=== PATIENT | female | born 1980 | race African-American/Black ===

== ENCOUNTER 2023-02-08 05:25 | Inpatient (IN) | payer OTHER ==
[2023-02-03 09:47] LABS: BASOPHILS % 0.3 % (0.0-1.0); EOSINOPHILS # (AUTO) 0.3 (0.0-0.4); EOSINOPHILS % 3.6 % (0.0-6.0); HEMATOCRIT 39.4 % (34.2-44.1); HEMOGLOBIN 12.6 g/dL (12.0-16.0); LYMPHOCYTES # (AUTO) 2.2 (1.0-3.2); LYMPHOCYTES % 24.4 % (18.0-39.1); MEAN CORPUSCULAR HEMOGLOBIN 26.5 pg (28-32); MEAN CORPUSCULAR VOLUME 82.8 fL (81-99); MONOCYTES # (AUTO) 0.5 (0.2-0.8); MONOCYTES % 5.3 % (4.4-11.3); NEUTROPHILS % 66.2 % (38.7-80.0); PLATELET COUNT 228 x10e3/uL (140-360); RED BLOOD COUNT 4.76 x10e6/uL (3.6-5.1); RED CELL DISTRIBUTION WIDTH 19.3 % (11.7-14.4); WHITE BLOOD COUNT 9.09 x10e3/uL (4.8-10.8)
[~2023-02-08] VITALS: Ht 175.3 cm; Wt 127.5 kg
[~2023-02-08 05:25] MED LIST: HYGROTON25 MG PO; NIFEDIPINE ER30 M1 PO
[2023-02-08] MEDS ORDERED: LACTATED RINGER'S 1,000 ML ONE (06:31)
[2023-02-08] MEDS ORDERED: BUPIVACAINE 0.25% 30ML SDV ONE ×3 (07:34→13:23)
[2023-02-08] MEDS ORDERED: HYDROCODONE/APAP 7.5MG-325MG 1 EA TAB PO PRN (07:45)
[2023-02-08 09:30] VITALS: BP 145/87; PULSE 78; RESP 14; TEMP 98.3; O2SAT 97
[2023-02-08] MEDS ORDERED: SCOPOLAMINE 1 MG PATCH TOP SCH (10:30)
[2023-02-08] MEDS ORDERED: FENTANYL CITRATE/PF 100MCG/2 ML INJ ONE (11:40)
[2023-02-08] MEDS ORDERED: MIDAZOLAM HCL 2 MG/2 ML VIAL ONE (11:40)
[2023-02-08 12:27] VITALS: BP 162/98; PULSE 87; RESP 20; TEMP 97.9; O2SAT 100
[2023-02-08] MEDS: ONDANSETRON HCL INJ 2MG/ML 2ML 2 MG/ML VIAL IV PRN ×2 (13:19→20:28)
[2023-02-08] MEDS: Morphine 2mg Syringe 2 MG/ML SYR IV PRN ×2 (13:20→20:28)
[2023-02-08] MEDS ORDERED: EPINEPHRINE HCL 1:1000 1ML 1 MG/ML AMP ONE (13:23)
[2023-02-08] MEDS: LACTATED RINGER'S 1,000 ML IV SCH (14:31)
[2023-02-08 16:20] VITALS: BP 173/91; PULSE 86; RESP 20; TEMP 97.9; O2SAT 98
[2023-02-08 18:49] VITALS: PULSE 89; RESP 20; O2SAT 100
[2023-02-08] MEDS ORDERED: ONDANSETRON HCL INJ 2MG/ML 2ML 2 MG/ML VIAL ONE (19:44)
[2023-02-08] MEDS ORDERED: PHENYLEPHRINE HCL 1% 10 MG/ML VIAL ONE (19:44)
[2023-02-08] MEDS ORDERED: ACETAMINOPHEN 1000 MG/100 ML IV ONE (19:44)
[2023-02-08] MEDS ORDERED: DEXAMETHASONE SOD PHOS INJ 4 MG/ML SDV ONE (19:44)
[2023-02-08] MEDS ORDERED: SUGAMMADEX SODIUM 200 MG/2 ML VIAL IV ONE (19:44)
[2023-02-08] MEDS ORDERED: LIDOCAINE HCL 2% LOCAL INJ 5 ML SDV VIAL INJ ONE (19:44)
[2023-02-08] MEDS ORDERED: DEXMEDETOMIDINE HCL 200 MCG/2 ML VIAL ONE (19:44)
[2023-02-08] MEDS ORDERED: PROPOFOL IV EMULSION 10 MG/ML 20 ML VIAL ONE (19:44)
[2023-02-08] MEDS ORDERED: ROCURONIUM BROMIDE 10 MG/ML 5ML VIAL IV ONE (19:44)
[2023-02-08] MEDS ORDERED: SEVOFLURANE INHAL SOLN 250 ML PEN BTL ONE (19:44)
[2023-02-08 20:00] VITALS: BP 179/95; PULSE 80; RESP 20; TEMP 99.1; O2SAT 100
[2023-02-08] MEDS: ENOXAPARIN SOD INJ 40 MG/0.4 ML SYR SC SCH (20:29)
[2023-02-08] MEDS ORDERED: ONDANSETRON HCL INJ 2MG/ML 2ML 2 MG/ML VIAL IV ONE (21:30)
[2023-02-08] MEDS: NIFEDIPINE CR 30 MG TAB PO SCH (22:35)
[2023-02-08] MEDS: CHLORTHALIDONE 25 MG TAB PO SCH (22:36)
[2023-02-09] VITALS (7 sets, daily range): BP systolic 146–181; BP diastolic 96–110; PULSE 70–97; RESP 18–21; TEMP 98.4–99.4; O2SAT 97–100
[2023-02-09] MEDS ORDERED: HYDRALAZINE HCL 20 MG/ML VIAL IV ONE (01:15)
[2023-02-09] MEDS: LACTATED RINGER'S 1,000 ML IV SCH ×2 (01:41→15:01)
[2023-02-09] MEDS ORDERED: HYDRALAZINE HCL 20 MG/ML VIAL IV PRN (05:15)
[2023-02-09 05:50] LABS: ALBUMIN 3.6 g/dL (3.5-5.0); ANION GAP 16.8 mmol/L (8-16); CREATININE, SERUM 0.89 mg/dL (0.57-1.11); MAGNESIUM 1.5 MG/DL (1.3-2.1); PHOSPHORUS 2.9 MG/DL (2.3-4.7); TOTAL PROTEIN 7.1 g/dL (6.5-8.1)
[2023-02-09 05:51] LABS: POTASSIUM 2.8 mmol/L (3.5-5.1)
[2023-02-09] MEDS ORDERED: POTASSIUM CHLORIDE 10MEQ EA PO ONE ×3 (06:50→10:30)
[2023-02-09 06:57] LABS: BASOPHILS % 0.1 % (0.0-1.0); HEMATOCRIT 39.3 % (34.2-44.1); HEMOGLOBIN 13.1 g/dL (12.0-16.0); LYMPHOCYTES # (AUTO) 1.9 (1.0-3.2); LYMPHOCYTES % 11.9 % (18.0-39.1); MEAN CORPUSCULAR HEMOGLOBIN 26.9 pg (28-32); MEAN CORPUSCULAR HGB CONC 33.3 g/dL (31-35); MEAN CORPUSCULAR VOLUME 80.7 fL (81-99); MONOCYTES # (AUTO) 1.2 (0.2-0.8); MONOCYTES % 7.4 % (4.4-11.3); NEUTROPHILS % 80.1 % (38.7-80.0); PLATELET COUNT 224 x10e3/uL (140-360); RED BLOOD COUNT 4.87 x10e6/uL (3.6-5.1); WHITE BLOOD COUNT 16.28 x10e3/uL (4.8-10.8)
[2023-02-09] MEDS: ONDANSETRON HCL INJ 2MG/ML 2ML 2 MG/ML VIAL IV PRN (07:26)
[2023-02-09] MEDS ORDERED: NIFEDIPINE CR 30 MG TAB PO SCH (09:00)
[2023-02-09] MEDS ORDERED: CHLORTHALIDONE 25 MG TAB PO SCH (09:00)
[2023-02-09] MEDS: CHLORTHALIDONE 25 MG TAB PO SCH (09:33)
[2023-02-09] MEDS: NIFEDIPINE CR 30 MG TAB PO SCH (09:35)
[2023-02-09] MEDS: ENOXAPARIN SOD INJ 40 MG/0.4 ML SYR SC SCH ×2 (09:35→17:48)
[2023-02-09] MEDS: POTASSIUM CHLORIDE 20MEQ/100ML 100 ML IV SCH ×2 (18:06→19:26)
[2023-02-09] MEDS ORDERED: SODIUM CHLORIDE 0.9% 250ML 250 ML ONE (18:14)
== END 2023-02-09 20:53 | disposition home or self-care (01) | DRG 620 ==
LOC: OR 05:25 → PACU V 07:44 → MED/SURG 09:55
PROVIDERS: ADMIT Internal Medicine; ATTEND Internal Medicine
PROC: 0DB64Z3 Excision of Stomach, Percutaneous Endoscopic Approach, Vertical (ICD-10-PCS; principal; 2023-02-08 07:38)
DX: E66.01 Morbid (severe) obesity due to excess calories (principal); K90.9 Intestinal malabsorption, unspecified; Z68.41 Body mass index [BMI] 40.0-44.9, adult; E87.6 Hypokalemia; I11.9 Hypertensive heart disease without heart failure; D64.9 Anemia, unspecified
CPT/HCPCS: 36415; 80053; 81025; 82948; 83735; 84100; 84132; 85025; 93005; 94799; J0171; J0690; J1100; J1650; J2001; J2250; J2270; J2371; J2405; J3480; J7050